=== PATIENT | male | born 1950 | race Caucasian/White ===

== ENCOUNTER 2016-06-05 11:01 | Emergency (ER) | payer MEDICARE ==
[~2016-06-05] VITALS: Ht 190.5 cm; Wt 127.5 kg
[~2016-06-05 11:01] MED LIST: ACET325T21 PO; AMIO200T42 PO; ATOR40TA78 PO; CA C1TAB60 PO; CLOP75TA22 PO; DICL75TA2 PO; DIPH25TA65 PO; DOXA4TAB3 PO; FINA5TAB4 PO; GABA300C10 PO; GLUC1CAP18 PO; HYDR-3307 PO; LISI-170 PO; LORA10CA PO; MULT-82 PO; OXYC-223 PO; OXYC-229 PO; OXYC-302 PO; PREG75CA PO; PUMP160C2 PO; SODI126M NAS; TAMS-11 PO; TRAM50TA2 PO; TRIA1TAB3 PO
[2016-06-05] MEDS ORDERED: OXYcodone/APAP 5/325MG TABLET ONE (12:18)
[2016-06-05] MEDS ORDERED: OXYcodone/APAP 5/325MG TABLET PO ONE (12:30)
[2016-06-05 12:41] LABS: BLOOD UREA NITROGEN 23 mg/dL (7-18)
[2016-06-05 14:01] VITALS: BP 138/103
== END 2016-06-05 14:54 | disposition home or self-care (01) ==
LOC: ED 14:48
DX: S90.31XA Contusion of right foot, initial encounter (principal); J44.1 Chronic obstructive pulmonary disease with (acute) exacerbation; L03.116 Cellulitis of left lower limb; I11.9 Hypertensive heart disease without heart failure; I87.2 Venous insufficiency (chronic) (peripheral); L97.529 Non-pressure chronic ulcer of other part of left foot with unspecified severity; I99.8 Other disorder of circulatory system; X58.XXXA Exposure to other specified factors, initial encounter; Y93.89 Activity, other specified; Y92.89 Other specified places as the place of occurrence of the external cause; Y99.9 Unspecified external cause status
CPT/HCPCS: 36415; 71020; 80048; 82040; 85025; 85651; 86140; 99285

== ENCOUNTER 2016-06-10 12:00 | Emergency (ER) | payer MEDICARE ==
[~2016-06-10] VITALS: Ht 152.4 cm; Wt 131.1 kg
[2016-06-10 12:03] VITALS: BP 165/115
[2016-06-10] MEDS ORDERED: OXYcodone/APAP 10/325MG TABLET PO ONE (12:30)
[2016-06-10] MEDS ORDERED: OXYcodone/APAP 10/325MG TABLET ONE (12:49)
== END 2016-06-10 13:00 | disposition home or self-care (01) ==
LOC: ED 12:15
DX: S90.31XA Contusion of right foot, initial encounter (principal); I10 Essential (primary) hypertension; J44.9 Chronic obstructive pulmonary disease, unspecified; L03.116 Cellulitis of left lower limb; W20.8XXA Other cause of strike by thrown, projected or falling object, initial encounter; Y93.89 Activity, other specified; Y92.89 Other specified places as the place of occurrence of the external cause; Y99.9 Unspecified external cause status
CPT/HCPCS: 99283

== ENCOUNTER 2016-06-19 11:52 | Emergency (ER) | payer MEDICARE ==
[~2016-06-19] VITALS: Ht 190.5 cm; Wt 130.8 kg
[2016-06-19 12:06] VITALS: BP 166/98
== END 2016-06-19 13:25 | disposition home or self-care (01) ==
LOC: ED 13:23
DX: Z76.0 Encounter for issue of repeat prescription (principal); I10 Essential (primary) hypertension; J44.9 Chronic obstructive pulmonary disease, unspecified
CPT/HCPCS: 99283